=== PATIENT | female | born 1945 | race Caucasian/White ===

== ENCOUNTER 2024-05-02 11:43 | Emergency (ER) | payer MEDICARE, OTHER ==
[~2024-05-02] VITALS: Ht 160 cm; Wt 71.7 kg
[2024-05-02] MEDS: IV NS 0.9% 1,000 ML BAG IV ONE (12:13)
[2024-05-02 12:38] LABS: BASOPHILS % (AUTO) 0.7 % (0.0-2.0); EOSINOPHILS # (AUTO) 0.2 K/uL (0.0-0.7); EOSINOPHILS % (AUTO) 2.3 % (0.0-6.0); HEMATOCRIT 37 % (33-45); HEMOGLOBIN 12.3 g/dL (11.5-14.8); LYMPHOCYTES # (AUTO) 1.9 K/uL (0.8-4.8); LYMPHOCYTES % (AUTO) 26.8 % (20.0-44.0); MEAN CORPUSCULAR HEMOGLOBIN 29 PG (26.0-33.0); MEAN CORPUSCULAR HGB CONC 33 g/dl (31.0-36.0); MEAN CORPUSCULAR VOLUME 88 fL (82-100); MONOCYTES # (AUTO) 0.4 K/uL (0.1-1.30); MONOCYTES % (AUTO) 5.4 % (2.0-12.0); NEUTROPHILS # (AUTO) 4.6 K/uL (1.8-8.9); NEUTROPHILS % (AUTO) 64.8 % (43.0-81.0); PLATELET COUNT (AUTO) 299 K/uL (150-450); RED BLOOD CELL COUNT(AUTO) 4.23 MIL/uL (4.0-5.2); RED CELL DISTRIBUTION WIDTH 14.6 % (11.5-15.0); WHITE BLOOD COUNT (AUTO) 7.1 K/uL (4.3-11.0)
[2024-05-02 12:48] LABS: ALANINE AMINOTRANSFERASE 25 U/L (12-78); ALBUMIN 3.6 g/dL (3.4-5.0); ALKALINE PHOSPHATASE 97 U/L (46-116); ASPARTATE AMINOTRANSFERASE 15 U/L (15-37); BILIRUBIN,TOTAL 0.2 mg/dL (0.2-1.0); CALCIUM, SERUM 9.3 mg/dL (8.5-10.1); CARBON DIOXIDE 27 mmol/L (21-32); CHLORIDE 107 mmol/L (98-107); CREATININE 0.8 mg/dL (0.6-1.3); GLUCOSE 146 mg/dL (74-106); POTASSIUM 4.1 mmol/L (3.5-5.1); SODIUM SERUM 140 mmol/L (136-145); TOTAL PROTEIN, SERUM 7.5 g/dL (6.4-8.2); UREA NITROGEN, BLOOD 15 mg/dL (7-18)
[2024-05-02] MEDS ORDERED: IOHEXOL-350 100 ML VIAL IV ONE (12:58)
[2024-05-02] MEDS ORDERED: CT SWABBABLE VALVE TRANS SET 1 EA INFUS.SET MC ONE (12:58)
[2024-05-02] MEDS ORDERED: IV NS 0.9% 250 ML IV ONE (12:59)
[2024-05-02 13:07] LABS: INR 0.95 (0.91-1.10); PARTIAL THROMBOPLASTIN TIME 26.2 SEC (24.3-34.3); PROTHROMBIN TIME 9.8 SECS (9.2-11.1)
[2024-05-02] MEDS ORDERED: LIDO30AD10 TP (15:00)
[2024-05-02] MEDS ORDERED: IBUP-1955 PO (15:00)
[2024-05-02] MEDS ORDERED: METH4TAB17 PO (15:00)
[2024-05-02 15:07] VITALS: BP 132/70; TEMP 98; O2SAT 98
== END 2024-05-02 15:15 | disposition home or self-care (01) ==
LOC: ER 11:53
DX: M50.122 Cervical disc disorder at C5-C6 level with radiculopathy (principal); M48.02 Spinal stenosis, cervical region; E11.9 Type 2 diabetes mellitus without complications; E78.5 Hyperlipidemia, unspecified; I10 Essential (primary) hypertension; R26.81 Unsteadiness on feet; R42 Dizziness and giddiness; R51.9 Headache, unspecified; R53.1 Weakness; Z86.73 Personal history of transient ischemic attack (TIA), and cerebral infarction without residual deficits
CPT/HCPCS: 99285; 72125; 96360; 71045; 93005; 70498; 70496; 85025; 80048; 80076; 36415; 84484; 85730; 82962; J7030; J7050; Q9967